=== PATIENT | male | born 1980 | race Caucasian/White ===

== ENCOUNTER 2018-07-17 11:36 | Emergency (ER) | payer BC, OTHER ==
[2014-07-28 13:49] VITALS: BP 123/80
--- NOTE | 2018-07-17 11:55 | PHYS DOC ---
Past History Past Medical History: Other Past Surgical History: TURP Alcohol Use: Rarely Drug Use: None Adult General Chief Complaint Chief Complaint: FINGER INJURY HPI HPI Patient is a 38 year old right handed male who presents with complaining of laceration of right index finger. Patient states he tried to open the case of his cell [employer] at [employer] store and cut his index finger. Patient is not up-to- date with tetanus immunization. Review of Systems Review of Systems Constitutional: Denies fever or chills [] Eyes: Denies change in visual acuity, redness, or eye pain [] HENT: Denies nasal congestion or sore throat [] Respiratory: Denies cough or shortness of breath [] Cardiovascular: No additional information not addressed in HPI [] GI: Denies abdominal pain, nausea, vomiting, bloody stools or diarrhea [] : Denies dysuria or hematuria [] Musculoskeletal: Denies back pain or joint pain [] Integument: Denies rash or skin lesions [] Neurologic: Denies headache, focal weakness or sensory changes [] Endocrine: Denies polyuria or polydipsia [] All other systems were reviewed and found to be within normal limits, except as documented in this note. Current Medications Current Medications Current Medications Medications (Trade) Dose Ordered Sig/Jason Start Time Stop Time Status Last Admin Dose Admin Diphtheria/ Tetanus/Acell Pertussis (Boostrix) 0.5 ml ONCE ONCE 07/17/18 12:00 07/17/18 12:01 Allergies Allergies Allergies Coded Allergies Type Severity Reaction Last Updated Verified No Known Drug Allergies 07/28/14 No Physical Exam Physical Exam Constitutional: Well developed, well nourished, no acute distress, non-toxic appearance. [] HENT: Normocephalic, atraumatic Eyes: PERRLA, EOMI, conjunctiva normal, no discharge. [] Neck: Normal range of motion, no tenderness, supple, no stridor. [] Cardiovascular:Heart rate regular rhythm, no murmur [] Lungs & Thorax: Bilateral breath sounds clear to auscultation [] Extremities: Centimeter laceration in the volar sides of right proximal phalanx with mild bleeding without tendon injury or neurovascular deficit Neurologic: Alert and oriented X 3, normal motor function, normal sensory function, no focal deficits noted. [] Psychologic: Affect normal, judgement normal, mood normal. [] EKG EKG [] Radiology/Procedures Radiology/Procedures [] Course & Med Decision Making Course & Med Decision Making Pertinent Labs and Imaging studies reviewed. (See chart for details) [] Dragon Disclaimer Dragon Disclaimer This electronic medical record was generated, in whole or in part, using a voice recognition dictation system. Departure Departure: Impression: Primary Impression: Laceration of right index finger Additional Impression: Need for immunization against tetanus alone Disposition: HOME, SELF-CARE (at 1231) Condition: IMPROVED Referrals: LING BAKER MD (PCP) Patient Instructions: Tissue Adhesive Wound Care Additional Instructions: Keep wound clean and dry Follow-up with your primary care physician in 3-5 days Return to ER if not getting better Laceration Repair Lac Repair Indication: Right index finger Procedure: The patient was placed in the appropriate position 1 cm laceration of proximal phalanx of right index was repaired with Dermabond and Steri-Strip. Total repaired wound length: 1 cm Other Items: [OTHER ITEMS] The patient tolerated the procedure well Complications: none. Problem Qualifiers Primary Impression: Laceration of right index finger Encounter type: initial encounter Damage to nail status: without damage Foreign body presence: without foreign body Qualified Codes: S61.210A - Laceration without foreign body of right index finger without damage to nail, initial encounter MANUEL UNDERWOOD MD Jul 17, 2018 11:55
[2018-07-17] MEDS ORDERED: DIPHTH,PERTUSS(ACELL),TET TOX 0.5 ML DISP.SYRIN. VAX IM ONE (12:00)
== END 2018-07-17 12:59 | disposition home or self-care (01) ==
LOC: ER 11:36
DX: S61.210A Laceration without foreign body of right index finger without damage to nail, initial encounter (principal); Z23 Encounter for immunization; W26.8XXA Contact with other sharp object(s), not elsewhere classified, initial encounter; Y93.89 Activity, other specified; Y92.512 Supermarket, store or market as the place of occurrence of the external cause; Y99.8 Other external cause status
CPT/HCPCS: 12001; 90471; 90715; 99283-25